=== PATIENT | female | born 1985 | race American Indian/Alaskan Native ===

== ENCOUNTER 2019-09-27 14:28 | Emergency (ER) | payer OTHER ==
[2019-09-27 14:32] VITALS: BP 137/79
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
--- NOTE | 2019-09-27 15:25 | XRay Report ---
Lumbar spine 5 views Indication: BACK INJURY Findings: There is no fracture, subluxation, or other radiographic abnormality of the lumbar spine. Signer Name: Skyler Mandel MD Signed: 09/27/2019 3:21 PM Workstation Name: [id number]
--- NOTE | 2019-09-27 15:25 | XRay Report ---
Left shoulder 3 views INDICATION: Left shoulder pain following injury IMPRESSION: No fracture or subluxation of the left shoulder. Signer Name: Skyler Mandel MD Signed: 09/27/2019 3:20 PM Workstation Name: [id number]
== END 2019-09-27 16:20 | disposition home or self-care (01) ==
LOC: ED 14:28
DX: S46.912A Strain of unspecified muscle, fascia and tendon at shoulder and upper arm level, left arm, initial encounter (principal); M54.9 Dorsalgia, unspecified; V49.59XA Passenger injured in collision with other motor vehicles in traffic accident, initial encounter; Y93.89 Activity, other specified; Y92.410 Unspecified street and highway as the place of occurrence of the external cause; Y99.8 Other external cause status
CPT/HCPCS: 72100

== ENCOUNTER 2019-10-23 06:08 | Emergency (ER) | payer OTHER ==
[2019-10-23 06:19] VITALS: BP 130/89
[2019-10-23] MEDS ORDERED: TETANUS,DIPH,PERTUSS(ACELL) VACCINE 0.5 ML SYRINGE IM ONE (08:13)
--- NOTE | 2019-10-23 08:17 | Emergency Department Report ---
ED Animal Bite HPI - General Chief Complaint: Animal Bite Stated Complaint: DOG BITE Time Seen by Provider: 10/23/19 07:25 Source: patient Mode of arrival: Ambulatory Limitations: No Limitations - History of Present Illness Initial Comments: This is a 34-year-old -Thai female who presents to the emergency room with a dog bite to the left inner thigh. Patient states she was walking her doll when her neighbor's dog was hiding in the bushes and her dog attacked him. When she pulled her both dogs away her pain leg rubbed against her doll and her doll accidentally bit her. Patient states her dog's immunizations are up-to-date. She has not applied anything to wound. She is unsure of last tetanus vaccine. She denies swelling, fever, numbness or tingling, weakness, or surrounding redness. MD Complaint: animal bite -: This morning Left: Thigh (inner thigh) Animal: dog Animal Control Notified: No Description: household pet Mechanism: bite Pain Description: constant Severity scale (0 -10): 9 Context: animals fighting Associated Symptoms: bleeding. denies: erythema, discharge from wound, fever, chills, rash, loss of consciousness, cough, headache, diaphoresis, shortness of breath Treatments Prior to Arrival: pressure - Related Data Patient Tetanus UTD: No Previous Rx's Medication Instructions Recorded Last Taken Type Cyclobenzaprine HCl [Flexeril 5 MG 5 mg PO TID PRN #21 tab 09/27/19 Unknown Rx TAB] Amoxicillin/Potassium Clav 1 each PO TID #21 tablet 10/23/19 Unknown Rx [Augmentin 500-125 Tablet] Naproxen [Naprosyn TAB] 500 mg PO BID #20 tablet 10/23/19 Unknown Rx Allergies Allergy/AdvReac Type Severity Reaction Status Date / Time No Known Allergies Allergy Unverified 09/27/19 14:31 ED Review of Systems ROS: Stated complaint: DOG BITE Other details as noted in HPI Constitutional: denies: chills, fever Respiratory: denies: cough, shortness of breath, wheezing Cardiovascular: denies: chest pain, palpitations Gastrointestinal: denies: abdominal pain, nausea, diarrhea Musculoskeletal: denies: back pain, joint swelling, arthralgia Skin: lesions (dog bite with laceration to left inner thigh). denies: rash Neurological: denies: headache, weakness, paresthesias Psychiatric: denies: anxiety, depression ED Past Medical Hx - Past Medical History Previous Medical History?: No - Surgical History Past Surgical History?: Yes Additional Surgical History: ectopic preg, eye - Social History Smoking Status: Never Smoker Substance Use Type: Alcohol, Marijuana - Medications Home Medications: Home Medications Medication Instructions Recorded Confirmed Last Taken Type Cyclobenzaprine HCl [Flexeril 5 MG 5 mg PO TID PRN #21 tab 09/27/19 Unknown Rx TAB] Amoxicillin/Potassium Clav 1 each PO TID #21 tablet 10/23/19 Unknown Rx [Augmentin 500-125 Tablet] Naproxen [Naprosyn TAB] 500 mg PO BID #20 tablet 10/23/19 Unknown Rx ED Physical Exam - General Limitations: No Limitations General appearance: alert, in no apparent distress, obese - Respiratory Respiratory exam: Present: normal lung sounds bilaterally. Absent: respiratory distress - Cardiovascular Cardiovascular Exam: Present: regular rate, normal rhythm. Absent: systolic murmur, diastolic murmur, rubs, gallop - GI/Abdominal GI/Abdominal exam: Present: soft, normal bowel sounds - Neurological Exam Neurological exam: Present: alert, oriented X3, normal gait - Psychiatric Psychiatric exam: Present: normal affect, normal mood - Skin Skin exam: Present: warm, dry, normal color, other (1.5 cm laceration into the epidermis of left medial femur, bloody drainage, tenderness, no surrounding cellulitis, FROM). Absent: intact, rash, cyanosis, diaphoretic, erythema, urticaria, vesicles, petechiae, pallor, abrasion, ecchymosis ED Course Vital Signs 10/23/19 06:18 Temperature 98.2 F Pulse Rate 101 H Respiratory 12 Rate Blood Pressure 130/89 O2 Sat by Pulse 98 Oximetry Critical care attestation.: If time is entered above; I have spent that time in minutes in the direct care of this critically ill patient, excluding procedure time. ED Disposition Clinical Impression: Dog bite of extremity Laceration of thigh, left Qualifiers: Encounter type: initial encounter Qualified Code(s): S71.112A - Laceration without foreign body, left thigh, initial encounter Disposition: - TO HOME OR SELFCARE Is pt being admited?: No Condition: Stable Instructions: Animal Bite (ED), Laceration (ED) Additional Instructions: Keep wound clean with soap and water. Complete antibiotics as prescribed. Follow-up with a primary care doctor in 1-2 days. Return to the emergency room if you notice foul smelling discharge, fever, swelling, or redness surrounding the wound. Prescriptions: Amoxicillin/Potassium Clav [Augmentin 500-125 Tablet] 1 each PO TID #21 tablet Naproxen [Naprosyn TAB] 500 mg PO BID #20 tablet Referrals: [facility], [facility] [Provider Group] - 3-5 Days [facility] [Provider Group] - 3-5 Days [facility] [Provider Group] - 3-5 Days FRANK PUGA DO [Staff Physician] - 3-5 Days Forms: Work/School Release Form(ED) Time of Disposition: 08:20 ED Medical Decision Making - Medical Decision Making Patient was examined by me. Patient is nontoxic appearing and stable. Vitals are normal. Given Boostrix while in the ER. There is a 1.5 cm laceration into the epidermis of left medial femur with bloody discharge. Wound irrigated with 100 mL of normal saline. A sterile 4 x 4 dressing applied to wound. Start Augmentin and naproxen. Instructed to monitor wound and follow up with PCP or return to the ER with worsening symptoms in 1-2 days. Patient discharged home in stable condition.
== END 2019-10-23 08:35 | disposition home or self-care (01) ==
LOC: ED 06:08
DX: S71.112A Laceration without foreign body, left thigh, initial encounter (principal); S71.152A Open bite, left thigh, initial encounter; Z98.890 Other specified postprocedural states; F12.10 Cannabis abuse, uncomplicated; Z79.2 Long term (current) use of antibiotics; Z79.899 Other long term (current) drug therapy; W54.0XXA Bitten by dog, initial encounter; Y93.89 Activity, other specified; Y92.89 Other specified places as the place of occurrence of the external cause; Y99.8 Other external cause status
CPT/HCPCS: 90471; 90715